=== PATIENT | male | born 1955 | race Caucasian/White ===

== ENCOUNTER 2018-06-29 22:07 | Emergency (ER) | payer OTHER ==
[~2018-06-29 22:07] MED LIST: Rocuronium 50 MG/5 ML Vial IVPUSH ONE; Sodium Chloride 0.9% 1,000 ML IV ONE; Succinylcholine 200 MG/10 ML MDV IV SCH
--- NOTE | 2018-06-29 22:14 | EDM.PDOC ---
ED HPI GENERAL MEDICAL PROBLEM - General Time Seen by Provider: 06/29/18 22:09 - History of Present Illness INITIAL COMMENTS - FREE TEXT/NARRATIVE: HISTORY AND PHYSICAL: History of present illness: Patient is approximately 61-year-old male presents status post cardiopulmonary arrest who on arrival does now have a pulse and blood pressure although is breathing Inés [id number] and noted be mottled and cyanotic patient has intraosseous access. On arrival was intubated by myself with 7.5 ET tube breath sounds are equal bilaterally and cyanosis improved dramatically status post intubation peripheral access in the form of 16-gauge IV in his right upper extremity was immediately obtained OG and Saul catheter were placed patient was paralyzed with rocuronium and propofol drip was initiated patient received a total of defibrillation 6 in the field Review of systems: As per history of present illness and below otherwise all systems reviewed and negative. Past medical history: As per history of present illness and as reviewed below otherwise noncontributory. Surgical history: As per history of present illness and as reviewed below otherwise noncontributory. Social history: No reported history of drug or alcohol abuse. Family history: As per history of present illness and as reviewed below otherwise noncontributory. Physical exam: HEENT: Atraumatic, normocephalic, pupils are 4 mm and equal bilaterally nonreactive trachea is midline Lungs breath sounds are equal bilaterally with bagging Heart S1-S2 Abdomen soft nontender nondistended Pelvis stable Extremities benign Neurologically patient is paralyzed limited exam Diagnostics: CBC CMP troponin PT/INR chest x-ray EKG Therapeutics: Intubation with 7.5 ET tube by myself good color change in breath sounds equal status post Impression: #1 observation status post cardiopulmonary arrest Definitive disposition and diagnosis as appropriate pending reevaluation and review of above. ED ROS GENERAL - Review of Systems Review Of Systems: ROS reveals no pertinent complaints other than HPI. ED EXAM, GENERAL - Physical Exam Exam: See Below (See dictation) Course - Vital Signs Text/Narrative:: [facility] has arrives and will transfer patient to I spoke with Dr. Cosme ER physician graciously accepted patient Departure - Departure Time of Disposition: 22:14 Disposition: DC/Tfer to Acute Hospital 02 Condition: Critical Clinical Impression: Cardiopulmonary arrest with successful resuscitation - Discharge Information
--- NOTE | 2018-06-30 21:16 | CR ---
EXAM DATE: 06/29/18 PATIENT'S AGE: 63 Patient: CLARA ALEXANDER Facility: [place], [place] Site . Site : [id number] Study: XRay Chest [id number]/23/2018 10:31:51 AM Ordering Physician: Lupe Dallas Final Report: HISTORY: Code blue. TECHNIQUE: Portable frontal view of the chest. COMPARISON: None. FINDINGS: Study was reported at that time it became available for dictation. Endotracheal tube tip is 3 cm above the flores. Enteric tube with tip below diaphragm, outside the field of view. Sternal wires. Mediastinal surgical clips. Elongated , tubular appearing density projecting over the upper right cardiomediastinal silhouette has appearance of a catheter but is not well seen beyond the tracheal air column. Tip of this projects at the level of the mid SVC. Abnormal lucency adjacent to this opacity in the upper mediastinum suspicious for pneumomediastinum. No airspace consolidation. No pleural effusion or pneumothorax. Cardiomediastinal silhouette is within normal limits for technique. IMPRESSION: 1. Possible pneumomediastinum. 2. Density with the appearance of catheter or catheter fragment projecting over the upper right mediastinum. This is not well seen beyond the tracheal air column. Alternatively this may be external to the patient. Discussed with Dr. Nan De Oliveira on 06/30/18 at 1138 hours. Dictated by Bennie Ji MD @ Jun 30 2018 11:01AM (Electronic Signature) Report Signed by Proxy. SALLY
== END 2018-06-29 22:50 ==
LOC: MW.ED 22:07
DX: I46.9 Cardiac arrest, cause unspecified (principal)
CPT/HCPCS: 31500; 71045; 92950; 93005; 96360; 96374; 99291; J0330; J7040; 99284